=== PATIENT | female | born 2000 | race African-American/Black ===

== ENCOUNTER 2022-07-17 12:03 | Emergency (ER) | payer MEDICAID ==
[~2022-07-17] VITALS: Ht 154.9 cm; Wt 42.2 kg
[2022-07-17 12:16] VITALS: BP 127/74
== END 2022-07-17 13:50 | disposition home or self-care (01) ==
LOC: ER 12:19
DX: R22.0 Localized swelling, mass and lump, head (principal); Z88.0 Allergy status to penicillin